=== PATIENT | male | born 1990 | race American Indian/Alaskan Native ===

== ENCOUNTER 2017-09-08 18:20 | Emergency (ER) | payer SELFPAY ==
--- NOTE | 2017-09-09 04:01 | Emergency Department Report ---
ED Laceration HPI - HPI Chief Complaint: Wound/Laceration Stated Complaint: CUT ON FACE Time Seen by Provider: 09/09/17 03:54 Occurred When: Yesterday Location: Head (left cheek) Severity: mild Tetanus Status: Up to Date Other History: 27-year-old -[place] male comes in for a laceration to his left cheek. Patient reports he was playing basketball when someone elbowed him. Patient reports that he went home and cleaned it out with peroxide and came in to be evaluated. Patient has no other complaints at this time. ED Review of Systems ROS: Stated complaint: CUT ON FACE Other details as noted in HPI Skin: other (cut to left cheek) ED Past Medical Hx - Past Medical History Previous Medical History?: No - Surgical History Additional Surgical History: L knee - Social History Smoking Status: Never Smoker Substance Use Type: None Laceration Physical Exam - Exam General: Vital signs noted. No distress. Alert and acting appropriately. Wound Length (cm): 2 (left cheek) Laceration Exam: Yes Normal Distal CMS, No Foreign Body, No Exposed Tendon, Vessel, or Nerve, No Tendon Injury ED Course Vital Signs 09/08/17 18:36 Temperature 98.3 F Pulse Rate 55 L Respiratory 18 Rate Blood Pressure 117/64 O2 Sat by Pulse 100 Oximetry - Laceration /Wound Repair Left Cheek Wound Location: face Wound Length (cm): 2 Wound's Depth, Shape: superficial, linear Wound Explored: clean Irrigated w/ Saline (ccs): 15 Betadine Prep?: Yes Wound Debrided: minimal Wound Repaired With: Steri-strips, Dermabond Sterile Dressing Applied?: Yes (Steri-Strips applied) Progress: Patient tolerated procedure well Critical care attestation.: If time is entered above; I have spent that time in minutes in the direct care of this critically ill patient, excluding procedure time. ED Disposition Clinical Impression: Laceration of cheek, left Qualifiers: Encounter type: initial encounter Qualified Code(s): S01.412A - Laceration without foreign body of left cheek and temporomandibular area, initial encounter Disposition: DC TO HOME OR SELFCARE Is pt being admited?: No Does the pt Need Aspirin: No Condition: Stable Instructions: Skin Adhesive Care (ED), Laceration (ED) Additional Instructions: Please keep wound clean and dry. Please is allow the Steri-Strips to naturally fall off. Please return back to the emergency room with any signs of infection such as purulent discharge swelling redness or fever.. Referrals: PRIMARY CARE, [Primary Care Provider] - 3-5 Days Forms: Work/School Release Form(ED)
[2017-09-09 04:02] VITALS: BP 116/66
== END 2017-09-09 03:55 | disposition home or self-care (01) ==
LOC: ED 18:20
DX: S01.412A Laceration without foreign body of left cheek and temporomandibular area, initial encounter (principal); W50.0XXA Accidental hit or strike by another person, initial encounter; Y93.64 Activity, baseball; Y92.89 Other specified places as the place of occurrence of the external cause; Y99.8 Other external cause status
CPT/HCPCS: 99282